=== PATIENT | female | born 1955 | race Caucasian/White ===

== ENCOUNTER 2017-01-03 10:15 | Emergency (ER) | payer MEDICARE ==
[~2017-01-03] VITALS: Ht 160 cm; Wt 64.1 kg
[2017-01-03 10:33] LABS: BASOPHIL COUNT 0.1 K/uL (0-0.1); EOSINOPHIL (%) 0.4 % (0-5); HEMATOCRIT 48.6 % (36.0-46.0); IMMATURE GRANULOCYTE (%) 0.3 % (0.0-0.7); INSTRUMENT ABS NEUTROPHIL CT 7.8 K/uL; LYMPHOCYTE COUNT 1.7 K/uL (1.0-2.8); MCH 30.9 PG (29.0-34.0); MCHC 32.9 G/DL (30.0-36.0); MCV 93.8 FL (83-99); MEAN PLAT.VOLUME 8.9 uM^3 (9.5-12.4); MONOCYTE (%) 9.6 % (3-12); NEUTROPHIL (%) 73.2 % (45-76); NEUTROPHIL COUNT 7.8 K/uL (1.8-6.4); PLATELET COUNT 200 K/uL (156-360); RBC DIS.WIDTH-CV 12.8 % (11.8-14.6); RBC DIS.WIDTH-SD 44.7 % (39-53); RED BLOOD COUNT 5.18 M/uL (3.80-5.20)
[2017-01-03 10:39] LABS: WHITE BLOOD COUNT 10.7 K/uL (4.1-10.2)
[2017-01-03 10:41] LABS: CHLORIDE 109 mEq/L (99-109); POTASSIUM 4.4 mEq/L (3.7-5.4); SODIUM 141 mEq/L (136-147)
[2017-01-03 10:44] LABS: GLUCOSE 105 mg/dL (70-99)
[2017-01-03 10:45] LABS: ANION GAP 10 MEQ/L (2-14); TOTAL BILIRUBIN 0.4 mg/dL (0.0-1.0)
[2017-01-03 10:47] LABS: ALKALINE PHOSPHATASE 32 IU/L (3-129); GFR ESTIMATE (CALCULATED) > 59 mL/min/
[2017-01-03 10:49] LABS: UREA NITROGEN (BUN) 19 mg/dL (9-23)
[2017-01-03 10:57] LABS: TROP-I INTERPRETATION NEGATIVE; TROPONIN-I < 0.01 ng/mL (0.0-0.30)
[2017-01-03 11:08] LABS: ERTH.SED.RATE 19 MM/HR (0-30)
[2017-01-03 11:38] LABS: C-REACTIVE PROTEIN 8.8 MG/L (0-10)
[2017-01-03 12:05] VITALS: BP 136/75
== END 2017-01-03 12:50 | disposition home or self-care (01) ==
LOC: EME 10:15
PROVIDERS: Emergency Medicine
DX: R07.9 Chest pain, unspecified (principal); R94.31 Abnormal electrocardiogram [ECG] [EKG]; M32.9 Systemic lupus erythematosus, unspecified; F17.200 Nicotine dependence, unspecified, uncomplicated
CPT/HCPCS: 71020; 80053; 84484; 85025; 85651; 86140; 93005; 99281; 99284